=== PATIENT | male | born 1995 | race Caucasian/White ===

== ENCOUNTER 2020-09-18 06:39 | Emergency (ER) | payer MEDICAID ==
[~2020-09-18] VITALS: Ht 154.9 cm; Wt 57.0 kg
[2020-09-18] MEDS ORDERED: LORAZEPAM 2MG/ML CPJ IV STA (07:05)
[2020-09-18] MEDS ORDERED: SODIUM CHLORIDE 0.9% 1,000 ML IV ONE (07:15)
[2020-09-18 08:35] VITALS: BP 123/69
== END 2020-09-18 08:52 | disposition home or self-care (01) ==
LOC: ER 06:39
DX: T43.621A Poisoning by amphetamines, accidental (unintentional), initial encounter (principal); R00.2 Palpitations; F15.988 Other stimulant use, unspecified with other stimulant-induced disorder; F12.90 Cannabis use, unspecified, uncomplicated; Y92.89 Other specified places as the place of occurrence of the external cause
CPT/HCPCS: 99281; J2060; J7030